=== PATIENT | male | born 1990 | race Caucasian/White ===

== ENCOUNTER 2017-10-26 09:56 | Inpatient (IN) | payer OTHER ==
[2017-10-26] MEDS: ONDANSETRON 4 MG INJ IV ×2 (12:15→17:51)
[2017-10-26] MEDS: KETOROLAC 30 MG INJ IV (12:16)
[2017-10-26 12:32] LABS: ADD MAN DIFF? NO
[2017-10-26 12:37] LABS: WHITE BLOOD COUNT 16.2 10^3/ul (4.8-10.8)
[2017-10-26 12:37] LABS: BASOPHILS % 0.2 % (0.0-2.0); EOSINOPHILS % 0.1 % (0.0-7.0); HEMATOCRIT 42.7 % (42.0-52.0); HEMOGLOBIN 15.1 g/dl (14.0-18.0); LYMPHOCYTES # 1.1 10^3/ul (0.8-2.9); LYMPHOCYTES % 6.8 % (15.0-51.0); MEAN CORPUSCULAR HEMOGLOBIN 32.1 pg (29.0-33.0); MEAN CORPUSCULAR HGB CONC 35.4 g/dl (32.0-37.0); MEAN CORPUSCULAR VOLUME 90.9 fl (82.0-101.0); MEAN PLATELET VOLUME 10.5 fl (7.4-10.4); NEUTROPHILS % 86.4 % (39.0-77.0); PLATELET COUNT 246 10^3/UL (140-415); RED CELL DISTRIBUTION WIDTH 12.5 % (11.5-14.5)
[2017-10-26 13:21] LABS: ADD UMIC YES; ALANINE AMINOTRANSFERASE 40 IU/L (13-69); ALBUMIN 3.9 g/dl (3.3-4.9); ALBUMIN/GLOBULIN RATIO 1.39; ALKALINE PHOSPHATASE 74 IU/L (42-121); ANION GAP 14 (8-16); ASPARTATE AMINO TRANSFERASE 34 IU/L (15-46); BILIRUBIN,INDIRECT 0.9 mg/dl (0-1.1); BILIRUBIN,TOTAL 0.9 mg/dl (0.2-1.3); BLOOD UREA NITROGEN 11 mg/dl (7-20); CALCIUM 9.3 mg/dl (8.4-10.2); CARBON DIOXIDE 24 mmol/L (21-31); CHLORIDE 102 mmol/L (97-110); CREATININE 0.62 mg/dl (0.61-1.24); GLUCOSE 99 mg/dl (70-220); LIPASE 159 U/L (23-300); POTASSIUM 3.9 mmol/L (3.5-5.1); SODIUM 136 mmol/L (135-144); TOTAL PROTEIN 6.7 g/dl (6.1-8.1); UR ASCORBIC ACID NEGATIVE (NEGATIVE); UR BILIRUBIN (Dip) NEGATIVE (NEGATIVE); UR BLOOD (Dip) 1+ mg/dL (NEGATIVE); UR CLARITY SLIGHTLY CLOUDY (CLEAR); UR COLOR AMBER (YELLOW); UR GLUCOSE (Dip) NEGATIVE (NEGATIVE); UR KETONES (Dip) 2+ mg/dL (NEGATIVE); UR LEUKOCYTE ESTERASE (Dip) NEGATIVE Leu/ul (NEGATIVE); UR MUCUS MANY /HPF (NONE SEEN); UR NITRITE (Dip) NEGATIVE (NEGATIVE); UR RBC 39 /HPF (0-5); UR SPECIFIC GRAVITY (Dip) 1.032 (1.003-1.030); UR SQUAMOUS EPITHELIAL CELL FEW /HPF (FEW); UR TOTAL PROTEIN (Dip) 2+ mg/dl (NEGATIVE); UR UROBILINOGEN (Dip) 2+ mg/dL (NEGATIVE); UR WBC 1 /HPF (0-5)
[2017-10-26] MEDS: SOD CHLORIDE 0.9% 500 ML IV ×2 (13:30→14:24)
[2017-10-26] MEDS ORDERED: ACETAMINOPHEN 325 MG TAB PO ×2 (14:30→15:00)
[2017-10-26] MEDS ORDERED: NACL 0.9% 3 ML SYG IV (15:00)
[2017-10-26] MEDS ORDERED: MAGNESIUM HYDROXIDE 30ML CUP PO (15:00)
[2017-10-26] MEDS ORDERED: KETOROLAC 30 MG INJ IV (16:00)
[2017-10-26 16:21] LABS: LACTATE DEHYDROGENASE 1001 IU/L (313-618)
[2017-10-26] MEDS: DEXTROSE 5%-0.45% NACL 1,000 ML IV (17:02)
[2017-10-26] MEDS: morphine 2 MG INJ IV (17:50)
[2017-10-26] MEDS: SOD CHLORIDE 0.9% 100 ML (19:39)
[2017-10-26] MEDS: IOHEXOL 300MG/ML 150 ML BTL (19:39)
[2017-10-26] MEDS: FAMOTIDINE 20 MG TAB PO (21:14)
[2017-10-27] MEDS: morphine 2 MG INJ IV ×5 (01:47→23:55)
[2017-10-27] MEDS: DEXTROSE 5%-0.45% NACL 1,000 ML IV ×5 (02:00→22:00)
[2017-10-27 06:03] LABS: ADD MAN DIFF? NO
[2017-10-27 06:09] LABS: BASOPHILS % 0.3 % (0.0-2.0); EOSINOPHILS % 0.3 % (0.0-7.0); HEMATOCRIT 39.3 % (42.0-52.0); HEMOGLOBIN 13.8 g/dl (14.0-18.0); LYMPHOCYTES % 8.7 % (15.0-51.0); MEAN CORPUSCULAR HEMOGLOBIN 32.2 pg (29.0-33.0); MEAN CORPUSCULAR HGB CONC 35.1 g/dl (32.0-37.0); MEAN CORPUSCULAR VOLUME 91.8 fl (82.0-101.0); MEAN PLATELET VOLUME 10.7 fl (7.4-10.4); MONOCYTE # 0.9 10^3/ul (0.3-0.9); MONOCYTES % 7.7 % (0.0-11.0); NEUTROPHIL # 9.9 10^3/ul (1.6-7.5); NEUTROPHILS % 82.5 % (39.0-77.0); PLATELET COUNT 212 10^3/UL (140-415); RED BLOOD COUNT 4.28 10^6/ul (4.70-6.10); RED CELL DISTRIBUTION WIDTH 12.6 % (11.5-14.5)
[2017-10-27 07:28] LABS: ALBUMIN 3.3 g/dl (3.3-4.9); ANION GAP 12 (8-16); BLOOD UREA NITROGEN 8 mg/dl (7-20); CALCIUM 8.6 mg/dl (8.4-10.2); CARBON DIOXIDE 27 mmol/L (21-31); CHLORIDE 102 mmol/L (97-110); GLUCOSE 105 mg/dl (70-220); MAGNESIUM 1.8 mg/dl (1.7-2.5); PHOSPHORUS 3.5 mg/dl (2.5-4.9); POTASSIUM 4.3 mmol/L (3.5-5.1); SODIUM 137 mmol/L (135-144)
[2017-10-27] MEDS: FAMOTIDINE 20 MG TAB PO ×2 (08:42→20:15)
[2017-10-27] MEDS ORDERED: ENOXAPARIN 40 MG/0.4 ML SYG SC (09:00)
[2017-10-27 11:50] LABS: INR 1.12; PROTIME 14.6 Sec (11.9-14.9); PT RATIO 1.1
[2017-10-27 11:51] LABS: PARTIAL THROMBOPLASTIN TIME 28.6 Sec (25.0-35.0)
[2017-10-27] MEDS: ZOLPIDEM 5 MG TAB PO (21:01)
[2017-10-28] MEDS: ONDANSETRON 4 MG INJ IV (02:40)
[2017-10-28] MEDS: KETOROLAC 30 MG INJ IV ×2 (02:40→17:32)
[2017-10-28] MEDS: DEXTROSE 5%-0.45% NACL 1,000 ML IV ×3 (04:38→17:34)
[2017-10-28] MEDS: morphine 2 MG INJ IV ×2 (06:30→20:55)
[2017-10-28 06:32] LABS: ADD MAN DIFF? NO
[2017-10-28 06:43] LABS: WHITE BLOOD COUNT 11.7 10^3/ul (4.8-10.8)
[2017-10-28 06:43] LABS: BASOPHILS % 0.3 % (0.0-2.0); EOSINOPHILS # 0.1 10^3/ul (0.0-0.5); EOSINOPHILS % 0.5 % (0.0-7.0); HEMATOCRIT 41.6 % (42.0-52.0); HEMOGLOBIN 14.3 g/dl (14.0-18.0); LYMPHOCYTES # 1.3 10^3/ul (0.8-2.9); LYMPHOCYTES % 10.8 % (15.0-51.0); MEAN CORPUSCULAR HEMOGLOBIN 31.6 pg (29.0-33.0); MEAN CORPUSCULAR HGB CONC 34.4 g/dl (32.0-37.0); MEAN CORPUSCULAR VOLUME 91.8 fl (82.0-101.0); MONOCYTES % 8.5 % (0.0-11.0); NEUTROPHIL # 9.3 10^3/ul (1.6-7.5); NEUTROPHILS % 79.5 % (39.0-77.0); PLATELET COUNT 208 10^3/UL (140-415); RED BLOOD COUNT 4.53 10^6/ul (4.70-6.10); RED CELL DISTRIBUTION WIDTH 12.2 % (11.5-14.5)
[2017-10-28 07:38] LABS: ALBUMIN 3.3 g/dl (3.3-4.9); ANION GAP 15 (8-16); BLOOD UREA NITROGEN 7 mg/dl (7-20); CALCIUM 8.7 mg/dl (8.4-10.2); CARBON DIOXIDE 27 mmol/L (21-31); CHLORIDE 102 mmol/L (97-110); CREATININE 0.69 mg/dl (0.61-1.24); GLUCOSE 99 mg/dl (70-220); MAGNESIUM 1.9 mg/dl (1.7-2.5); PHOSPHORUS 4.1 mg/dl (2.5-4.9); POTASSIUM 4.4 mmol/L (3.5-5.1); SODIUM 140 mmol/L (135-144)
[2017-10-28] MEDS: FAMOTIDINE 20 MG TAB PO ×2 (08:59→20:56)
[2017-10-28] MEDS: FENTAnyl 50 MCG/ML VIAL (11:00)
[2017-10-28] MEDS: MIDAZOLAM 1 MG/ML 2 ML INJ (11:00)
[2017-10-28] MEDS: SOD CHLORIDE 0.9% 100 ML (11:00)
[2017-10-28] MEDS: LIDOCAINE 1% (MDV) 20 ML INJ (11:10)
[2017-10-29] MEDS: ONDANSETRON 4 MG INJ IV ×2 (00:17→06:35)
[2017-10-29] MEDS: KETOROLAC 30 MG INJ IV ×4 (00:17→21:17)
[2017-10-29] MEDS: morphine 2 MG INJ IV ×3 (04:16→18:34)
[2017-10-29] MEDS: DEXTROSE 5%-0.45% NACL 1,000 ML IV ×3 (05:30→18:34)
[2017-10-29 07:03] LABS: ADD MAN DIFF? NO; BASOPHILS % 0.3 % (0.0-2.0); EOSINOPHILS # 0.1 10^3/ul (0.0-0.5); EOSINOPHILS % 0.7 % (0.0-7.0); HEMATOCRIT 40.5 % (42.0-52.0); HEMOGLOBIN 14.5 g/dl (14.0-18.0); LYMPHOCYTES # 1.1 10^3/ul (0.8-2.9); LYMPHOCYTES % 8.5 % (15.0-51.0); MEAN CORPUSCULAR HEMOGLOBIN 32.7 pg (29.0-33.0); MEAN CORPUSCULAR HGB CONC 35.8 g/dl (32.0-37.0); MEAN CORPUSCULAR VOLUME 91.2 fl (82.0-101.0); MEAN PLATELET VOLUME 10.9 fl (7.4-10.4); MONOCYTES % 7.5 % (0.0-11.0); NEUTROPHIL # 10.8 10^3/ul (1.6-7.5); NEUTROPHILS % 82.4 % (39.0-77.0); PLATELET COUNT 196 10^3/UL (140-415); RED BLOOD COUNT 4.44 10^6/ul (4.70-6.10); RED CELL DISTRIBUTION WIDTH 12.4 % (11.5-14.5)
[2017-10-29 07:03] LABS: WHITE BLOOD COUNT 13.1 10^3/ul (4.8-10.8)
[2017-10-29 07:13] LABS: ALBUMIN 3.6 g/dl (3.3-4.9); ANION GAP 18 (8-16); BLOOD UREA NITROGEN 8 mg/dl (7-20); CALCIUM 8.5 mg/dl (8.4-10.2); CARBON DIOXIDE 23 mmol/L (21-31); CHLORIDE 103 mmol/L (97-110); CREATININE 0.67 mg/dl (0.61-1.24); GLUCOSE 86 mg/dl (70-220); MAGNESIUM 1.9 mg/dl (1.7-2.5); PHOSPHORUS 3.9 mg/dl (2.5-4.9); POTASSIUM 4.5 mmol/L (3.5-5.1); SODIUM 139 mmol/L (135-144)
[2017-10-29 07:17] LABS: URIC ACID 4.4 mg/dl (3.1-7.9)
[2017-10-29] MEDS: ALLOPURINOL 300 MG TAB PO (08:20)
[2017-10-29] MEDS: FAMOTIDINE 20 MG TAB PO ×2 (08:20→21:17)
[2017-10-30] MEDS: morphine 2 MG INJ IV ×2 (01:59→23:36)
[2017-10-30] MEDS: DEXTROSE 5%-0.45% NACL 1,000 ML IV ×2 (05:36→20:51)
[2017-10-30] MEDS: KETOROLAC 30 MG INJ IV ×2 (05:37→11:14)
[2017-10-30] MEDS ORDERED: LIDOCAINE 2% (SDV) 5 ML INJ (07:00)
[2017-10-30] MEDS ORDERED: CEFAZOLIN 1 GM INJ (07:00)
[2017-10-30 07:04] LABS: INR 1.19; PROTIME 15.3 Sec (11.9-14.9); PT RATIO 1.2
[2017-10-30 07:05] LABS: PARTIAL THROMBOPLASTIN TIME 28.4 Sec (25.0-35.0)
[2017-10-30] MEDS: FAMOTIDINE 20 MG TAB PO ×2 (08:17→20:51)
[2017-10-30] MEDS: ALLOPURINOL 300 MG TAB PO (08:17)
[2017-10-30] MEDS ORDERED: BUPIVACAINE 0.25% (MPF) 30 ML INJ (17:55)
[2017-10-30] MEDS ORDERED: PROPOFOL 20 ML (18:16)
[2017-10-30] MEDS ORDERED: ROCURONIUM 50 MG INJ (18:16)
[2017-10-30] MEDS: BUPIVACAINE 0.25% (MPF) 30 ML INJ INJ (18:43)
[2017-10-30] MEDS ORDERED: DEXAMETHASONE 4 MG/ML 1 ML INJ (18:49)
[2017-10-30] MEDS ORDERED: ONDANSETRON 4 MG INJ (18:50)
[2017-10-30] MEDS ORDERED: KETOROLAC 30 MG INJ (19:11)
[2017-10-30] MEDS ORDERED: SUGAMMADEX SODIUM 200 MG/2 ML VIAL IV (19:12)
[2017-10-30] MEDS ORDERED: OXYCODONE/ACETAMINOPHEN (5/325) TAB PO ×2 (19:30)
[2017-10-30] MEDS ORDERED: HYDROmorphONE (0.2 MG/ML) 10ML SYG IV ×3 (19:30)
[2017-10-30] MEDS ORDERED: hydrALAzine 20 MG INJ IV (19:30)
[2017-10-30] MEDS ORDERED: KETOROLAC 30 MG INJ IV (19:30)
[2017-10-30] MEDS ORDERED: MEPERIDINE 25 MG INJ IV (19:30)
[2017-10-30] MEDS ORDERED: ALBUTEROL 0.083% (NEB) 2.5 MG/3 ML AMP HHN (19:30)
[2017-10-30] MEDS ORDERED: EPHEDrine SULFATE 50 MG/5 ML SYG IV (19:30)
[2017-10-30] MEDS ORDERED: ONDANSETRON 4 MG INJ IV (19:30)
[2017-10-30] MEDS ORDERED: LABETALOL HCL 20MG INJ IV (19:30)
[2017-10-30] MEDS ORDERED: DIPHENHYDRAMINE 50 MG INJ IV (19:30)
[2017-10-30] MEDS ORDERED: FENTAnyl 50 MCG/ML VIAL IV ×3 (19:30)
[2017-10-30] MEDS ORDERED: METOCLOPRAMIDE 10 MG INJ IV (19:30)
[2017-10-30] MEDS ORDERED: MIDAZOLAM 1 MG/ML 2 ML INJ IV (19:30)
[2017-10-31] MEDS: morphine 2 MG INJ IV ×4 (03:39→18:43)
[2017-10-31] MEDS: DEXTROSE 5%-0.45% NACL 1,000 ML IV ×2 (05:58→18:43)
[2017-10-31] MEDS: HYDROCODONE/APAP (5/325) TAB PO ×2 (06:26→20:18)
[2017-10-31] MEDS: FAMOTIDINE 20 MG TAB PO ×2 (08:15→20:17)
[2017-10-31] MEDS: ALLOPURINOL 300 MG TAB PO (08:15)
[2017-10-31] MEDS: ONDANSETRON 4 MG INJ IV (12:15)
[2017-10-31] MEDS: SOD CHLORIDE 0.9% 500 ML (15:00)
[2017-10-31] MEDS: CEFAZOLIN 1 GM/50 ML (PMX) 50 ML IVPB (15:00)
[2017-10-31] MEDS: FENTAnyl 50 MCG/ML VIAL (15:30)
[2017-10-31] MEDS: LIDOCAINE 1%/EPI 30 ML INJ (15:30)
[2017-10-31] MEDS: MIDAZOLAM 1 MG/ML 2 ML INJ (15:30)
[2017-10-31] MEDS: HEPARIN 1000 UNITS/ML 10 ML INJ (15:45)
[2017-10-31] MEDS: POLYMYXIN/BACITRACIN 1L IRRIG IRR (15:45)
[2017-11-01] MEDS: HYDROCODONE/APAP (5/325) TAB PO ×5 (01:16→23:57)
[2017-11-01] MEDS: DEXTROSE 5%-0.45% NACL 1,000 ML IV ×4 (02:00→22:00)
[2017-11-01] MEDS: morphine 2 MG INJ IV ×4 (04:22→21:29)
[2017-11-01] MEDS: FAMOTIDINE 20 MG TAB PO ×2 (08:34→20:27)
[2017-11-01] MEDS: ALLOPURINOL 300 MG TAB PO (08:34)
[2017-11-01] MEDS: ONDANSETRON 4 MG INJ IV (10:58)
[2017-11-02] MEDS: DEXTROSE 5%-0.45% NACL 1,000 ML IV ×2 (04:03→10:00)
[2017-11-02] MEDS: morphine 2 MG INJ IV ×4 (04:06→21:33)
[2017-11-02] MEDS: HYDROCODONE/APAP (5/325) TAB PO ×4 (05:58→23:26)
[2017-11-02] MEDS: FAMOTIDINE 20 MG TAB PO ×2 (08:32→21:33)
[2017-11-02] MEDS: ALLOPURINOL 300 MG TAB PO (08:32)
[2017-11-02] MEDS: NS + KCL 20 MEQ 1,000 ML IV ×2 (10:56→20:09)
[2017-11-02] MEDS: METOCLOPRAMIDE 10 MG TAB PO ×3 (11:08→23:26)
[2017-11-02] MEDS ORDERED: METOCLOPRAMIDE 10 MG INJ IV (12:00)
[2017-11-02] MEDS ORDERED: ACETAMINOPHEN 325 MG TAB PO (13:00)
[2017-11-03] MEDS: morphine 2 MG INJ IV ×5 (03:16→21:32)
[2017-11-03] MEDS: ONDANSETRON 4 MG INJ IV (03:16)
[2017-11-03] MEDS: NS + KCL 20 MEQ 1,000 ML IV ×3 (04:48→15:47)
[2017-11-03] MEDS: METOCLOPRAMIDE 10 MG TAB PO ×3 (05:33→17:20)
[2017-11-03] MEDS: HYDROCODONE/APAP (5/325) TAB PO ×4 (05:34→18:23)
[2017-11-03 05:58] LABS: ADD MAN DIFF? NO; BASOPHILS % 0.3 % (0.0-2.0); EOSINOPHILS # 0.1 10^3/ul (0.0-0.5); EOSINOPHILS % 0.4 % (0.0-7.0); HEMATOCRIT 40.4 % (42.0-52.0); HEMOGLOBIN 14.2 g/dl (14.0-18.0); LYMPHOCYTES % 8.5 % (15.0-51.0); MEAN CORPUSCULAR HGB CONC 35.1 g/dl (32.0-37.0); MEAN PLATELET VOLUME 11.3 fl (7.4-10.4); MONOCYTE # 1.1 10^3/ul (0.3-0.9); MONOCYTES % 9.4 % (0.0-11.0); NEUTROPHIL # 9.4 10^3/ul (1.6-7.5); NEUTROPHILS % 80.6 % (39.0-77.0); PLATELET COUNT 200 10^3/UL (140-415); RED BLOOD COUNT 4.44 10^6/ul (4.70-6.10); RED CELL DISTRIBUTION WIDTH 12.2 % (11.5-14.5)
[2017-11-03 05:58] LABS: WHITE BLOOD COUNT 11.7 10^3/ul (4.8-10.8)
[2017-11-03 06:34] LABS: ALANINE AMINOTRANSFERASE 53 IU/L (13-69); ALBUMIN 3.3 g/dl (3.3-4.9); ALBUMIN/GLOBULIN RATIO 1.17; ALKALINE PHOSPHATASE 125 IU/L (42-121); ANION GAP 16 (8-16); ASPARTATE AMINO TRANSFERASE 57 IU/L (15-46); BILIRUBIN,INDIRECT 1.7 mg/dl (0-1.1); BILIRUBIN,TOTAL 2.9 mg/dl (0.2-1.3); BLOOD UREA NITROGEN 11 mg/dl (7-20); CALCIUM 8.6 mg/dl (8.4-10.2); CARBON DIOXIDE 24 mmol/L (21-31); CHLORIDE 100 mmol/L (97-110); CREATININE 0.55 mg/dl (0.61-1.24); GLUCOSE 95 mg/dl (70-220); POTASSIUM 4.5 mmol/L (3.5-5.1); SODIUM 135 mmol/L (135-144); TOTAL PROTEIN 6.1 g/dl (6.1-8.1)
[2017-11-03] MEDS: FAMOTIDINE 20 MG TAB PO ×2 (07:53→20:27)
[2017-11-03] MEDS: ALLOPURINOL 300 MG TAB PO (07:53)
[2017-11-03] MEDS: DOCUSATE SODIUM 100 MG CAP PO (18:25)
[2017-11-03] MEDS: traMADol 50 MG TAB GTB (20:27)
[2017-11-04] MEDS: NS + KCL 20 MEQ 1,000 ML IV ×4 (00:32→15:48)
[2017-11-04] MEDS: METOCLOPRAMIDE 10 MG TAB PO ×4 (00:32→19:25)
[2017-11-04] MEDS: morphine 2 MG INJ IV ×3 (04:25→15:46)
[2017-11-04 05:36] LABS: ADD MAN DIFF? NO
[2017-11-04 05:45] LABS: WHITE BLOOD COUNT 12.1 10^3/ul (4.8-10.8)
[2017-11-04 05:45] LABS: BASOPHILS % 0.3 % (0.0-2.0); EOSINOPHILS # 0.1 10^3/ul (0.0-0.5); EOSINOPHILS % 0.7 % (0.0-7.0); HEMATOCRIT 39.1 % (42.0-52.0); HEMOGLOBIN 13.6 g/dl (14.0-18.0); LYMPHOCYTES # 1.4 10^3/ul (0.8-2.9); LYMPHOCYTES % 11.7 % (15.0-51.0); MEAN CORPUSCULAR HEMOGLOBIN 31.5 pg (29.0-33.0); MEAN CORPUSCULAR HGB CONC 34.8 g/dl (32.0-37.0); MEAN CORPUSCULAR VOLUME 90.5 fl (82.0-101.0); MEAN PLATELET VOLUME 11.3 fl (7.4-10.4); MONOCYTE # 1.2 10^3/ul (0.3-0.9); MONOCYTES % 9.6 % (0.0-11.0); NEUTROPHIL # 9.3 10^3/ul (1.6-7.5); PLATELET COUNT 230 10^3/UL (140-415); RED BLOOD COUNT 4.32 10^6/ul (4.70-6.10); RED CELL DISTRIBUTION WIDTH 12.4 % (11.5-14.5)
[2017-11-04 06:15] LABS: ANION GAP 14 (8-16); BLOOD UREA NITROGEN 11 mg/dl (7-20); CARBON DIOXIDE 26 mmol/L (21-31); CHLORIDE 100 mmol/L (97-110); CREATININE 0.62 mg/dl (0.61-1.24); GLUCOSE 93 mg/dl (70-220); POTASSIUM 4.3 mmol/L (3.5-5.1); SODIUM 136 mmol/L (135-144)
[2017-11-04] MEDS: HYDROCODONE/APAP (5/325) TAB PO ×3 (06:21→19:28)
[2017-11-04] MEDS: ONDANSETRON 4 MG INJ IV (11:09)
[2017-11-04] MEDS: FAMOTIDINE 20 MG TAB PO ×2 (11:09→21:16)
[2017-11-04] MEDS: ALLOPURINOL 300 MG TAB PO (11:10)
[2017-11-04] MEDS: ONDANSETRON INJ 16 MG, DEXAMETHASONE 4 MG/ML 20 MG in DEXTROSE 5% 50 ML IV (15:49)
[2017-11-04] MEDS: BLEOMYCIN IV (16:21)
[2017-11-04] MEDS: SOD CHLORIDE 0.9% IV ×3 (16:21→23:03)
[2017-11-04] MEDS: ETOPOSIDE IV (17:50)
[2017-11-04] MEDS: CISPLATIN IV (23:03)
[2017-11-05] MEDS: METOCLOPRAMIDE 10 MG TAB PO ×4 (00:02→18:00)
[2017-11-05] MEDS: morphine 2 MG INJ IV ×2 (01:12→05:24)
[2017-11-05] MEDS: NS + KCL 20 MEQ 1,000 ML IV ×3 (05:25→16:26)
[2017-11-05 05:30] LABS: ADD MAN DIFF? NO
[2017-11-05 05:33] LABS: BASOPHILS % 0.1 % (0.0-2.0); EOSINOPHILS % 0.1 % (0.0-7.0); HEMATOCRIT 34.4 % (42.0-52.0); LYMPHOCYTES # 0.7 10^3/ul (0.8-2.9); LYMPHOCYTES % 5.5 % (15.0-51.0); MEAN CORPUSCULAR HEMOGLOBIN 31.5 pg (29.0-33.0); MEAN CORPUSCULAR HGB CONC 34.9 g/dl (32.0-37.0); MEAN CORPUSCULAR VOLUME 90.3 fl (82.0-101.0); MEAN PLATELET VOLUME 11.3 fl (7.4-10.4); MONOCYTE # 1.1 10^3/ul (0.3-0.9); NEUTROPHIL # 11.4 10^3/ul (1.6-7.5); NEUTROPHILS % 85.6 % (39.0-77.0); PLATELET COUNT 199 10^3/UL (140-415); RED BLOOD COUNT 3.81 10^6/ul (4.70-6.10); RED CELL DISTRIBUTION WIDTH 12.1 % (11.5-14.5)
[2017-11-05 05:33] LABS: WHITE BLOOD COUNT 13.3 10^3/ul (4.8-10.8)
[2017-11-05 05:51] LABS: ANION GAP 11 (8-16); BLOOD UREA NITROGEN 12 mg/dl (7-20); CALCIUM 8.7 mg/dl (8.4-10.2); CARBON DIOXIDE 23 mmol/L (21-31); CHLORIDE 104 mmol/L (97-110); CREATININE 0.58 mg/dl (0.61-1.24); GLUCOSE 108 mg/dl (70-220); MAGNESIUM 1.9 mg/dl (1.7-2.5); PHOSPHORUS 4.7 mg/dl (2.5-4.9); POTASSIUM 4.1 mmol/L (3.5-5.1); SODIUM 134 mmol/L (135-144)
[2017-11-05] MEDS: FAMOTIDINE 20 MG TAB PO ×2 (09:33→20:50)
[2017-11-05] MEDS: ALLOPURINOL 300 MG TAB PO (09:34)
[2017-11-05] MEDS: HYDROCODONE/APAP (5/325) TAB PO (09:34)
[2017-11-05] MEDS: HYDROCODONE/APAP (10/325) TAB PO ×2 (13:06→20:50)
[2017-11-05] MEDS: ONDANSETRON INJ 16 MG, DEXAMETHASONE 4 MG/ML 20 MG in DEXTROSE 5% 50 ML IV (17:30)
[2017-11-05] MEDS: ETOPOSIDE IV (18:04)
[2017-11-05] MEDS: SOD CHLORIDE 0.9% IV ×2 (18:04→21:39)
[2017-11-05] MEDS: CISPLATIN IV (21:39)
[2017-11-05] MEDS: ZOLPIDEM 5 MG TAB PO (23:08)
[2017-11-06] MEDS: METOCLOPRAMIDE 10 MG TAB PO ×4 (00:35→18:00)
[2017-11-06] MEDS: ONDANSETRON 4 MG INJ IV ×2 (04:27→09:49)
[2017-11-06] MEDS: morphine 2 MG INJ IV (04:28)
[2017-11-06 05:12] LABS: ADD MAN DIFF? NO
[2017-11-06 05:17] LABS: ABNORMAL IP MESSAGE 1; BASOPHILS % 0.1 % (0.0-2.0); HEMATOCRIT 30.9 % (42.0-52.0); HEMOGLOBIN 10.8 g/dl (14.0-18.0); LYMPHOCYTES # 0.5 10^3/ul (0.8-2.9); LYMPHOCYTES % 4.8 % (15.0-51.0); MEAN CORPUSCULAR HEMOGLOBIN 31.6 pg (29.0-33.0); MEAN CORPUSCULAR VOLUME 90.4 fl (82.0-101.0); MEAN PLATELET VOLUME 11.4 fl (7.4-10.4); MONOCYTE # 0.6 10^3/ul (0.3-0.9); MONOCYTES % 5.7 % (0.0-11.0); NEUTROPHIL # 9.7 10^3/ul (1.6-7.5); NEUTROPHILS % 88.8 % (39.0-77.0); PLATELET COUNT 189 10^3/UL (140-415); POSITIVE DIFF @See below; RED BLOOD COUNT 3.42 10^6/ul (4.70-6.10); RED CELL DISTRIBUTION WIDTH 12.4 % (11.5-14.5)
[2017-11-06] MEDS: NS + KCL 20 MEQ 1,000 ML IV ×2 (05:33→16:33)
[2017-11-06 05:38] LABS: URIC ACID 3.3 mg/dl (3.1-7.9)
[2017-11-06 05:50] LABS: ANION GAP 13 (8-16); BLOOD UREA NITROGEN 15 mg/dl (7-20); CARBON DIOXIDE 20 mmol/L (21-31); CHLORIDE 110 mmol/L (97-110); CREATININE 0.56 mg/dl (0.61-1.24); GLUCOSE 114 mg/dl (70-220); MAGNESIUM 1.8 mg/dl (1.7-2.5); POTASSIUM 4.7 mmol/L (3.5-5.1); SODIUM 138 mmol/L (135-144)
[2017-11-06] MEDS: HYDROCODONE/APAP (10/325) TAB PO ×2 (09:48→21:32)
[2017-11-06] MEDS: ALLOPURINOL 300 MG TAB PO (09:49)
[2017-11-06] MEDS: FAMOTIDINE 20 MG TAB PO ×2 (09:49→20:59)
[2017-11-06] MEDS: ENOXAPARIN 30 MG/0.3 ML SYG SC (14:05)
[2017-11-06] MEDS: LORAZEPAM 2 MG INJ IV (16:26)
[2017-11-06] MEDS: ONDANSETRON INJ 16 MG, DEXAMETHASONE 4 MG/ML 20 MG in DEXTROSE 5% 50 ML IV (17:27)
[2017-11-06] MEDS: SOD CHLORIDE 0.9% IV ×2 (18:14→21:03)
[2017-11-06] MEDS: ETOPOSIDE IV (18:14)
[2017-11-06] MEDS: CISPLATIN IV (21:03)
[2017-11-07] MEDS: METOCLOPRAMIDE 10 MG TAB PO ×2 (00:32→05:09)
[2017-11-07] MEDS: ZOLPIDEM 5 MG TAB PO (01:53)
[2017-11-07] MEDS: morphine 2 MG INJ IV ×5 (05:10→18:38)
[2017-11-07] MEDS: NS + KCL 20 MEQ 1,000 ML IV ×3 (06:09→15:14)
[2017-11-07 06:56] LABS: ANION GAP 14 (8-16); BLOOD UREA NITROGEN 16 mg/dl (7-20); CALCIUM 8.3 mg/dl (8.4-10.2); CARBON DIOXIDE 20 mmol/L (21-31); CHLORIDE 106 mmol/L (97-110); CREATININE 0.62 mg/dl (0.61-1.24); GLUCOSE 110 mg/dl (70-220); MAGNESIUM 1.7 mg/dl (1.7-2.5); PHOSPHORUS 5.2 mg/dl (2.5-4.9); POTASSIUM 4.2 mmol/L (3.5-5.1); SODIUM 136 mmol/L (135-144)
[2017-11-07] MEDS: FAMOTIDINE 20 MG TAB PO ×2 (08:40→20:39)
[2017-11-07] MEDS: ONDANSETRON 4 MG INJ IV ×2 (08:40→14:02)
[2017-11-07] MEDS: ALLOPURINOL 300 MG TAB PO (08:40)
[2017-11-07] MEDS: ENOXAPARIN 30 MG/0.3 ML SYG SC (08:52)
[2017-11-07] MEDS: FUROSEMIDE 40 MG INJ IV (15:13)
[2017-11-07] MEDS: ONDANSETRON INJ 16 MG, DEXAMETHASONE 4 MG/ML 20 MG in DEXTROSE 5% 50 ML IV (17:29)
[2017-11-07] MEDS: SOD CHLORIDE 0.9% IV ×3 (17:55→22:24)
[2017-11-07] MEDS: ETOPOSIDE IV (17:55)
[2017-11-07] MEDS: CISPLATIN IV ×2 (18:00→22:24)
[2017-11-07] MEDS: LEVOFLOXACIN 750 MG TABLET PO (20:39)
[2017-11-08] MEDS: morphine 2 MG INJ IV ×4 (01:11→17:05)
[2017-11-08] MEDS: FUROSEMIDE 40 MG INJ IV ×2 (01:20)
[2017-11-08] MEDS: LORAZEPAM 2 MG INJ IV ×2 (03:16→14:24)
[2017-11-08] MEDS: ONDANSETRON 4 MG INJ IV ×2 (03:24→10:23)
[2017-11-08 05:07] LABS: ADD MAN DIFF? NO
[2017-11-08 05:11] LABS: WHITE BLOOD COUNT 12.8 10^3/ul (4.8-10.8)
[2017-11-08 05:11] LABS: BASOPHILS % 0.1 % (0.0-2.0); EOSINOPHILS % 0.1 % (0.0-7.0); HEMATOCRIT 33.9 % (42.0-52.0); HEMOGLOBIN 12.1 g/dl (14.0-18.0); LYMPHOCYTES # 0.8 10^3/ul (0.8-2.9); LYMPHOCYTES % 5.9 % (15.0-51.0); MEAN CORPUSCULAR HEMOGLOBIN 31.6 pg (29.0-33.0); MEAN CORPUSCULAR HGB CONC 35.7 g/dl (32.0-37.0); MEAN CORPUSCULAR VOLUME 88.5 fl (82.0-101.0); MEAN PLATELET VOLUME 11.5 fl (7.4-10.4); MONOCYTE # 0.2 10^3/ul (0.3-0.9); MONOCYTES % 1.2 % (0.0-11.0); NEUTROPHIL # 11.8 10^3/ul (1.6-7.5); NEUTROPHILS % 92.2 % (39.0-77.0); PLATELET COUNT 249 10^3/UL (140-415); RED BLOOD COUNT 3.83 10^6/ul (4.70-6.10); RED CELL DISTRIBUTION WIDTH 12.3 % (11.5-14.5)
[2017-11-08 05:51] LABS: ANION GAP 17 (8-16); BLOOD UREA NITROGEN 20 mg/dl (7-20); CALCIUM 8.8 mg/dl (8.4-10.2); CARBON DIOXIDE 24 mmol/L (21-31); CHLORIDE 101 mmol/L (97-110); CREATININE 0.67 mg/dl (0.61-1.24); GLUCOSE 119 mg/dl (70-220); MAGNESIUM 1.7 mg/dl (1.7-2.5); PHOSPHORUS 6.2 mg/dl (2.5-4.9); POTASSIUM 4.5 mmol/L (3.5-5.1); SODIUM 137 mmol/L (135-144); URIC ACID 4.3 mg/dl (3.1-7.9)
[2017-11-08] MEDS: LEVOFLOXACIN 750 MG TABLET PO (06:36)
[2017-11-08 07:49] LABS: LACTATE DEHYDROGENASE 2746 IU/L (313-618)
[2017-11-08] MEDS: ALLOPURINOL 300 MG TAB PO (09:02)
[2017-11-08] MEDS: FAMOTIDINE 20 MG TAB PO ×2 (09:02→21:20)
[2017-11-08] MEDS: ENOXAPARIN 30 MG/0.3 ML SYG SC (09:04)
[2017-11-08] MEDS: NS + KCL 20 MEQ 1,000 ML IV (13:36)
[2017-11-08] MEDS: traMADol 50 MG TAB GTB (13:40)
[2017-11-08] MEDS: CHLORPROMAZINE 25 MG TAB PO (17:05)
[2017-11-08] MEDS: ONDANSETRON INJ 16 MG, DEXAMETHASONE 4 MG/ML 20 MG in DEXTROSE 5% 50 ML IV (18:11)
[2017-11-08] MEDS: SOD CHLORIDE 0.9% IV ×2 (18:35→22:16)
[2017-11-08] MEDS: ETOPOSIDE IV (18:35)
[2017-11-08] MEDS ORDERED: ONDANSETRON 4 MG INJ IV (21:00)
[2017-11-08] MEDS: CISPLATIN IV (22:16)
[2017-11-09] MEDS: morphine 2 MG INJ IV ×7 (00:41→22:53)
[2017-11-09] MEDS: LORAZEPAM 2 MG INJ IV ×2 (03:50→23:35)
[2017-11-09] MEDS: CHLORPROMAZINE 25 MG TAB PO ×2 (04:25→12:28)
[2017-11-09 05:30] LABS: WHITE BLOOD COUNT 9.3 10^3/ul (4.8-10.8)
[2017-11-09 05:30] LABS: HEMATOCRIT 32.9 % (42.0-52.0); HEMOGLOBIN 11.6 g/dl (14.0-18.0); MEAN CORPUSCULAR HEMOGLOBIN 31.5 pg (29.0-33.0); MEAN CORPUSCULAR HGB CONC 35.3 g/dl (32.0-37.0); MEAN CORPUSCULAR VOLUME 89.4 fl (82.0-101.0); MEAN PLATELET VOLUME 11.8 fl (7.4-10.4); PLATELET COUNT 196 10^3/UL (140-415); POSITIVE DIFF @See below; RED BLOOD COUNT 3.68 10^6/ul (4.70-6.10); RED CELL DISTRIBUTION WIDTH 11.9 % (11.5-14.5)
[2017-11-09 05:55] LABS: ADD MAN DIFF? YES
[2017-11-09] MEDS: LEVOFLOXACIN 750 MG TABLET PO (06:14)
[2017-11-09 06:15] LABS: PHOSPHORUS 5.2 mg/dl (2.5-4.9)
[2017-11-09 06:21] LABS: ALANINE AMINOTRANSFERASE 61 IU/L (13-69); ALBUMIN 2.8 g/dl (3.3-4.9); ALKALINE PHOSPHATASE 151 IU/L (42-121); ANION GAP 12 (8-16); ASPARTATE AMINO TRANSFERASE 81 IU/L (15-46); BILIRUBIN,INDIRECT 0.9 mg/dl (0-1.1); BILIRUBIN,TOTAL 0.9 mg/dl (0.2-1.3); BLOOD UREA NITROGEN 22 mg/dl (7-20); CALCIUM 8.9 mg/dl (8.4-10.2); CARBON DIOXIDE 24 mmol/L (21-31); CHLORIDE 103 mmol/L (97-110); CREATININE 0.71 mg/dl (0.61-1.24); GLUCOSE 113 mg/dl (70-220); MAGNESIUM 1.8 mg/dl (1.7-2.5); POTASSIUM 4.7 mmol/L (3.5-5.1); SODIUM 134 mmol/L (135-144); TOTAL PROTEIN 5.6 g/dl (6.1-8.1)
[2017-11-09 06:37] LABS: LACTATE DEHYDROGENASE 2272 IU/L (313-618)
[2017-11-09] MEDS: ENOXAPARIN 30 MG/0.3 ML SYG SC (09:08)
[2017-11-09] MEDS: FAMOTIDINE 20 MG TAB PO ×2 (09:08→20:09)
[2017-11-09] MEDS: ALLOPURINOL 300 MG TAB PO (09:08)
[2017-11-09 09:36] LABS: BURR CELLS 1+ (0-0); LYMPHOCYTES #M 0.2 10^3/ul (0.8-2.9); LYMPHOCYTES % (M) 3 % (15-51); MONOCYTES % (M) 1 % (0-11); PLATELET ESTIMATE NORMAL; POIKILOCYTOSIS 1+ (0-0); REACTIVE LYMPHOCYTES% (M) 1 % (0-0); SEGMENTED NEUTROPHILS (M) % 95 % (39-77)
[2017-11-09 10:13] LABS: URIC ACID 4.5 mg/dl (3.1-7.9)
[2017-11-09] MEDS: HYDROCODONE/APAP (10/325) TAB PO ×3 (10:55→23:36)
[2017-11-09] MEDS: NS + KCL 20 MEQ 1,000 ML IV (12:29)
[2017-11-09] MEDS: FILGRASTIM 480 MCG INJ SC (16:35)
[2017-11-10] MEDS: NS + KCL 20 MEQ 1,000 ML IV ×2 (01:28→15:53)
[2017-11-10] MEDS: morphine 2 MG INJ IV ×7 (02:39→22:31)
[2017-11-10] MEDS: HYDROCODONE/APAP (10/325) TAB PO ×3 (04:56→19:28)
[2017-11-10 06:21] LABS: ABNORMAL IP MESSAGE 1; HEMOGLOBIN 11.2 g/dl (14.0-18.0); MEAN CORPUSCULAR HEMOGLOBIN 32.4 pg (29.0-33.0); MEAN CORPUSCULAR HGB CONC 36.1 g/dl (32.0-37.0); MEAN CORPUSCULAR VOLUME 89.6 fl (82.0-101.0); MEAN PLATELET VOLUME 11.5 fl (7.4-10.4); PLATELET COUNT 136 10^3/UL (140-415); POSITIVE DIFF @See below; RED BLOOD COUNT 3.46 10^6/ul (4.70-6.10)
[2017-11-10 06:21] LABS: WHITE BLOOD COUNT 28.1 10^3/ul (4.8-10.8)
[2017-11-10 06:23] LABS: ADD MAN DIFF? YES
[2017-11-10 06:50] LABS: URIC ACID 3.7 mg/dl (3.1-7.9)
[2017-11-10 06:50] LABS: PHOSPHORUS 4.7 mg/dl (2.5-4.9)
[2017-11-10 06:52] LABS: ALANINE AMINOTRANSFERASE 59 IU/L (13-69); ALBUMIN 2.6 g/dl (3.3-4.9); ALBUMIN/GLOBULIN RATIO 1.04; ALKALINE PHOSPHATASE 152 IU/L (42-121); ANION GAP 15 (8-16); ASPARTATE AMINO TRANSFERASE 87 IU/L (15-46); BILIRUBIN,INDIRECT 1.2 mg/dl (0-1.1); BILIRUBIN,TOTAL 1.2 mg/dl (0.2-1.3); BLOOD UREA NITROGEN 24 mg/dl (7-20); CALCIUM 8.4 mg/dl (8.4-10.2); CARBON DIOXIDE 23 mmol/L (21-31); CHLORIDE 103 mmol/L (97-110); CREATININE 0.71 mg/dl (0.61-1.24); GLUCOSE 72 mg/dl (70-220); MAGNESIUM 1.8 mg/dl (1.7-2.5); POTASSIUM 4.8 mmol/L (3.5-5.1); SODIUM 136 mmol/L (135-144); TOTAL PROTEIN 5.1 g/dl (6.1-8.1)
[2017-11-10] MEDS: ALLOPURINOL 300 MG TAB PO (09:18)
[2017-11-10] MEDS: FAMOTIDINE 20 MG TAB PO ×2 (09:18→21:00)
[2017-11-10] MEDS: CHLORPROMAZINE 25 MG TAB PO (10:13)
[2017-11-10] MEDS: ENOXAPARIN 30 MG/0.3 ML SYG SC (10:13)
[2017-11-10] MEDS: FUROSEMIDE 40 MG INJ IV (10:14)
[2017-11-10] MEDS: LORAZEPAM 2 MG INJ IV (10:39)
[2017-11-10 11:16] LABS: BAND NEUTROPHILS #M 1.9 10^3/ul (0.0-0.6); BAND NEUTROPHILS % (M) 7 % (0-4); BURR CELLS 1+ (0-0); LYMPHOCYTES #M 2.5 10^3/ul (0.8-2.9); LYMPHOCYTES % (M) 9 % (15-51); PLATELET ESTIMATE DECREASED; POIKILOCYTOSIS 1+ (0-0); SEG NEUT #M 24.1 10^3/ul (1.7-7.5); SEGMENTED NEUTROPHILS (M) % 84 % (39-77); SMUDGE%M 3 % (0-0)
[2017-11-10] MEDS: FILGRASTIM 480 MCG INJ SC (17:08)
[2017-11-11] MEDS: HYDROCODONE/APAP (10/325) TAB PO (00:34)
[2017-11-11] MEDS: HYDROmorphONE 2 MG/ML SYG IV ×6 (00:46→20:13)
[2017-11-11] MEDS: morphine 2 MG INJ IV ×5 (02:35→23:00)
[2017-11-11] MEDS: NS + KCL 20 MEQ 1,000 ML IV ×3 (04:44→20:15)
[2017-11-11 05:31] LABS: WHITE BLOOD COUNT 21.3 10^3/ul (4.8-10.8)
[2017-11-11 05:31] LABS: ABNORMAL IP MESSAGE 1; HEMATOCRIT 28.7 % (42.0-52.0); HEMOGLOBIN 10.2 g/dl (14.0-18.0); MEAN CORPUSCULAR HEMOGLOBIN 31.7 pg (29.0-33.0); MEAN CORPUSCULAR HGB CONC 35.5 g/dl (32.0-37.0); MEAN CORPUSCULAR VOLUME 89.1 fl (82.0-101.0); PLATELET COUNT 95 10^3/UL (140-415); POSITIVE DIFF @See below; RED BLOOD COUNT 3.22 10^6/ul (4.70-6.10); RED CELL DISTRIBUTION WIDTH 11.9 % (11.5-14.5)
[2017-11-11 05:32] LABS: ADD MAN DIFF? YES
[2017-11-11 07:17] LABS: ALANINE AMINOTRANSFERASE 55 IU/L (13-69); ALBUMIN 2.6 g/dl (3.3-4.9); ALBUMIN/GLOBULIN RATIO 0.96; ALKALINE PHOSPHATASE 174 IU/L (42-121); ANION GAP 10 (8-16); ASPARTATE AMINO TRANSFERASE 78 IU/L (15-46); BILIRUBIN,TOTAL 1.4 mg/dl (0.2-1.3); BLOOD UREA NITROGEN 23 mg/dl (7-20); CALCIUM 8.5 mg/dl (8.4-10.2); CARBON DIOXIDE 24 mmol/L (21-31); CHLORIDE 100 mmol/L (97-110); CREATININE 0.66 mg/dl (0.61-1.24); GLUCOSE 88 mg/dl (70-220); POTASSIUM 4.5 mmol/L (3.5-5.1); SODIUM 129 mmol/L (135-144); TOTAL PROTEIN 5.3 g/dl (6.1-8.1); URIC ACID 4.1 mg/dl (3.1-7.9)
[2017-11-11 07:24] LABS: LACTATE DEHYDROGENASE 2309 IU/L (313-618)
[2017-11-11] MEDS: ALLOPURINOL 300 MG TAB PO (08:51)
[2017-11-11] MEDS: FAMOTIDINE 20 MG TAB PO ×2 (08:52→20:13)
[2017-11-11] MEDS: ENOXAPARIN 30 MG/0.3 ML SYG SC (09:00)
[2017-11-11 10:27] LABS: ANISOCYTOSIS 2+ (0-0); BAND NEUTROPHILS #M 1.2 10^3/ul (0.0-0.6); BAND NEUTROPHILS % (M) 6 % (0-4); EOSINOPHILS % (M) 3 % (0-7); LYMPHOCYTES % (M) 5 % (15-51); MICROCYTOSIS 1+ (0-0); MONOCYTE #M 0.2 10^3/ul (0.3-0.9); MONOCYTES % (M) 1 % (0-11); PLATELET ESTIMATE DECREASED; POIKILOCYTOSIS 3+ (0-0); POLYCHROMASIA 1+ (0-0); SEG NEUT #M 18.4 10^3/ul (1.7-7.5); SEGMENTED NEUTROPHILS (M) % 85 % (39-77)
[2017-11-11] MEDS: ONDANSETRON INJ 8 MG in SOD CHLORIDE 0.9% 50 ML IV (15:08)
[2017-11-11] MEDS: SOD CHLORIDE 0.9% IV (16:03)
[2017-11-11] MEDS: BLEOMYCIN IV (16:03)
[2017-11-12] MEDS: HYDROmorphONE 2 MG/ML SYG IV ×3 (00:55→08:28)
[2017-11-12] MEDS: morphine 2 MG INJ IV ×3 (03:26→12:23)
[2017-11-12 05:24] LABS: ABNORMAL IP MESSAGE 1; HEMATOCRIT 28.6 % (42.0-52.0); HEMOGLOBIN 9.9 g/dl (14.0-18.0); MEAN CORPUSCULAR HEMOGLOBIN 31.2 pg (29.0-33.0); MEAN CORPUSCULAR HGB CONC 34.6 g/dl (32.0-37.0); MEAN CORPUSCULAR VOLUME 90.2 fl (82.0-101.0); MEAN PLATELET VOLUME 12.1 fl (7.4-10.4); PLATELET COUNT 70 10^3/UL (140-415); POSITIVE DIFF @See below; RED BLOOD COUNT 3.17 10^6/ul (4.70-6.10); RED CELL DISTRIBUTION WIDTH 11.9 % (11.5-14.5)
[2017-11-12 05:24] LABS: WHITE BLOOD COUNT 8.5 10^3/ul (4.8-10.8)
[2017-11-12 05:45] LABS: ADD MAN DIFF? YES
[2017-11-12 05:53] LABS: ANION GAP 13 (8-16); BLOOD UREA NITROGEN 21 mg/dl (7-20); CALCIUM 8.1 mg/dl (8.4-10.2); CARBON DIOXIDE 23 mmol/L (21-31); CHLORIDE 102 mmol/L (97-110); CREATININE 0.61 mg/dl (0.61-1.24); GLUCOSE 89 mg/dl (70-220); POTASSIUM 4.7 mmol/L (3.5-5.1); SODIUM 133 mmol/L (135-144)
[2017-11-12] MEDS: ENOXAPARIN 30 MG/0.3 ML SYG SC (07:35)
[2017-11-12 07:45] LABS: BAND NEUTROPHILS #M 0.6 10^3/ul (0.0-0.6); BAND NEUTROPHILS % (M) 8 % (0-4); EOSINOPHILS % (M) 1 % (0-7); GIANT THROMBO% (M) 1 % (0-0); LYMPHOCYTES #M 0.5 10^3/ul (0.8-2.9); LYMPHOCYTES % (M) 7 % (15-51); PLATELET ESTIMATE DECREASED; SEG NEUT #M 7.2 10^3/ul (1.7-7.5); SEGMENTED NEUTROPHILS (M) % 84 % (39-77); SMUDGE%M 1 % (0-0)
[2017-11-12] MEDS: FAMOTIDINE 20 MG TAB PO (08:30)
[2017-11-12] MEDS: ALLOPURINOL 300 MG TAB PO (08:30)
[2017-11-12] MEDS: HYDROCODONE/APAP (10/325) TAB PO (10:01)
[2017-11-12] MEDS: NS + KCL 20 MEQ 1,000 ML IV (10:01)
[2017-11-12] MEDS: HEPARIN (100 UNITS/ML) 5 ML SYG CATHETER (12:46)
[2017-11-18] MEDS ORDERED: BLEOMYCIN IV (14:00)
[2017-11-18] MEDS ORDERED: SOD CHLORIDE 0.9% IV (14:00)
== END 2017-11-12 13:14 | disposition home or self-care (01) | DRG 711 ==
LOC: MS1 11-03 10:27 → MS2 20:32 → FTE 09:56 → MS2 14:25
PROC: 0VT90ZZ Resection of Right Testis, Open Approach (ICD-10-PCS; principal; 2017-10-30 17:30)
PROC: 0WBH3ZX Excision of Retroperitoneum, Percutaneous Approach, Diagnostic (ICD-10-PCS; 2017-10-30 18:20)
PROC: 0JH60WZ Insertion of Totally Implantable Vascular Access Device into Chest Subcutaneous Tissue and Fascia, Open Approach (ICD-10-PCS; 2017-10-30 18:20)
PROC: 02H633Z Insertion of Infusion Device into Right Atrium, Percutaneous Approach (ICD-10-PCS; 2017-10-30 18:20)
PROC: 3E04305 Introduction of Other Antineoplastic into Central Vein, Percutaneous Approach (ICD-10-PCS; 2017-10-30 18:20)
DX: C62.91 Malignant neoplasm of right testis, unspecified whether descended or undescended (principal); C78.02 Secondary malignant neoplasm of left lung; C78.6 Secondary malignant neoplasm of retroperitoneum and peritoneum; C78.01 Secondary malignant neoplasm of right lung; E87.1 Hypo-osmolality and hyponatremia; F12.90 Cannabis use, unspecified, uncomplicated; F41.9 Anxiety disorder, unspecified
CPT/HCPCS: 36415; 36561; 71045; 71250; 74176; 74177; 76870; 76942; 77012; 80048; 80053; 80069; 81001; 82105; 83615; 83690; 83735; 84100; 84560; 84702; 85025; 85384; 85610; 85730; 88307; 88309; 88313; 88341; 88342; 94010; 94726; 94729; 96374; 96375; 96376; 97110; 97116; 97162; 99285-25; J9040; J9181

== ENCOUNTER 2018-10-04 08:43 | Emergency (ER) | payer SELFPAY, OTHER | END 2018-10-04 11:19 | disposition left against medical advice (07) | LOC: E/R 08:43 | DX: Z53.21 Procedure and treatment not carried out due to patient leaving prior to being seen by health care provider (principal) ==

== ENCOUNTER 2018-12-31 10:10 | Emergency (ER) | payer OTHER ==
[2018-12-31] MEDS: LIDOCAINE 1% (MDV) 20 ML INJ SC (12:32)
[2018-12-31] MEDS: METHYLPREDNISOLONE 125 MG INJ IV (13:38)
[2018-12-31] MEDS: KETOROLAC 15 MG INJ IV (13:40)
[2018-12-31] MEDS: morphine 2 MG INJ IV (13:41)
[2018-12-31] MEDS: CEFAZOLIN 2 GM/50 ML (PMX) 50 ML IVPB (14:16)
== END 2018-12-31 15:03 | disposition home or self-care (01) ==
LOC: FTE 10:10
DX: L02.31 Cutaneous abscess of buttock (principal); Z85.47 Personal history of malignant neoplasm of testis
CPT/HCPCS: 96365; 96375; 99284-25

== ENCOUNTER 2019-01-02 14:51 | Emergency (ER) | payer OTHER | END 2019-01-02 16:52 | disposition left against medical advice (07) | LOC: FTE 14:51 | DX: Z48.01 Encounter for change or removal of surgical wound dressing (principal); Z85.47 Personal history of malignant neoplasm of testis | CPT/HCPCS: 99281; Z7502 ==